=== PATIENT | female | born 2000 | race Caucasian/White ===

== ENCOUNTER 2024-04-20 05:56 | Day surgery (SDC) | payer OTHER, MEDICARE ==
[~2024-04-20] VITALS: Ht 172.7 cm; Wt 77.2 kg
[2024-04-20] MEDS ORDERED: SODIUM CHLORIDE 0.9% 0 ML ONE (06:51)
[2024-04-20] MEDS ORDERED: RINGERS SOLUTION,LACTATED 1,000 ML IV ONE ×2 (07:03→13:37)
[2024-04-20] MEDS ORDERED: DEXAMETHASONE SOD PHOS 4 MG/ML VIAL ONE (07:21)
[2024-04-20] MEDS ORDERED: SUGAMMADEX SODIUM 200 MG/2 ML VIAL IVP ONE (07:21)
[2024-04-20] MEDS ORDERED: PROPOFOL 1% 20 ML VIAL IVP ONE (07:21)
[2024-04-20] MEDS ORDERED: GLYCOPYRROLATE 0.2 MG/ML VIAL ONE (07:21)
[2024-04-20] MEDS ORDERED: LIDOCAINE/PF 2% 5 ML VIAL ONE (07:21)
[2024-04-20] MEDS ORDERED: ROCURONIUM BROMIDE 10 MG/ML 5 ML VIAL ONE (07:21)
[2024-04-20] MEDS ORDERED: ONDANSETRON HCL 4 MG/2 ML VIAL ONE (07:21)
[2024-04-20 07:28] LABS: BASOPHILS % (AUTO) 0.8 % (0.0-2.0); EOSINOPHILS % (AUTO) 1.2 % (1.0-6.0); HEMATOCRIT 35.9 % (36-46); HEMOGLOBIN 12.3 g/dL (12.0-16.0); LYMPHOCYTES # (AUTO) 1.2 K/uL (1.0-4.8); LYMPHOCYTES % (AUTO) 23.3 % (22.0-44.0); MEAN CORPUSCULAR HGB CONC 34.1 G/dL (31.0-37.0); MEAN CORPUSCULAR VOLUME 97 fL (80-100); MONOCYTES # (AUTO) 0.5 K/uL (0.1-1.0); MONOCYTES % (AUTO) 8.9 % (2.0-9.0); NEUTROPHILS # (AUTO) 3.5 K/uL (1.8-7.7); NEUTROPHILS % (AUTO) 65.8 % (40.0-70.0); PLATELET COUNT (AUTO) 200 K/uL (150-450); RED BLOOD CELL COUNT(AUTO) 3.71 MIL/uL (4.00-5.20); RED CELL DISTRIBUTION WIDTH 12.6 % (11.5-14.5); WHITE BLOOD COUNT (AUTO) 5.3 K/uL (4.5-11.0)
[2024-04-20] MEDS ORDERED: AMPICILLIN SODIUM 2 GM/NS 100 ML IV ONE (07:40)
[2024-04-20 07:42] LABS: PROTHROMBIN TIME 11.4 SEC (9.4-11.6)
[2024-04-20 07:44] LABS: CHLORIDE 101 mmol/L (98-107); POTASSIUM 4.3 mmol/L (3.5-5.1); SODIUM SERUM 133 mmol/L (136-145)
[2024-04-20 07:59] LABS: ALANINE AMINOTRANSFERASE 16 U/L (12-78); ALBUMIN 3.6 g/dL (3.4-5.0); ALKALINE PHOSPHATASE 72 U/L (46-116); ANION GAP 8 mmol/L (8-16); ASPARTATE AMINOTRANSFERASE 18 U/L (15-37); BILIRUBIN,TOTAL 0.2 mg/dL (0.1-1.0); CALCIUM, TOTAL 8.4 mg/dL (8.8-10.5); CARBON DIOXIDE 24 mmol/L (22-29); GLOMERULAR FILTR. RATE CALC > 60 mL/min (>60); GLUCOSE,RANDOM 91 mg/dL (70-110); TOTAL PROTEIN, SERUM 6.5 g/dL (6.4-8.2); UREA NITROGEN, BLOOD 11 mg/dL (7-18)
[2024-04-20] MEDS ORDERED: LINA290C PO (09:34)
[2024-04-20] MEDS ORDERED: RISP3TAB77 PO (09:34)
[2024-04-20] MEDS ORDERED: CLON-595 PO (09:34)
[2024-04-20] MEDS ORDERED: ESLI800T PO (09:34)
[2024-04-20] MEDS ORDERED: DIAZ10 PO (09:34)
[2024-04-20] MEDS ORDERED: TRAZ-257 PO (09:34)
[2024-04-20] MEDS ORDERED: FLUO-418 PO (09:34)
[2024-04-20] MEDS ORDERED: ARIP10TA38 PO (09:34)
[2024-04-20] MEDS ORDERED: CENO50TA PO (09:58)
[2024-04-20] MEDS: RINGERS SOLUTION,LACTATED 1,000 ML IV ONE (12:02)
== END 2024-04-20 15:00 | disposition home or self-care (01) ==
LOC: SURGERY 05:56
PROVIDERS: ATTEND Dentist General Practice
DX: K02.9 Dental caries, unspecified (principal); K05.20 Aggressive periodontitis, unspecified; K03.6 Deposits [accretions] on teeth; R94.31 Abnormal electrocardiogram [ECG] [EKG]; G40.909 Epilepsy, unspecified, not intractable, without status epilepticus; F84.0 Autistic disorder; F70 Mild intellectual disabilities; F63.81 Intermittent explosive disorder
CPT/HCPCS: 41899; 71045; 80053; 84703; 85025; 85610; 85730; 36415; 93005; J0290; J2704; J1100; J3490 ×4; J2405; J7120; J7030; Z7610